=== PATIENT | male | born 1980 | race Hispanic/Latino ===

== ENCOUNTER 2020-03-03 17:39 | Emergency (ER) | payer OTHER, SELFPAY | END 2020-03-03 18:25 | disposition home or self-care (01) | LOC: NAV ERS 17:39 | DX: F41.1 Generalized anxiety disorder (principal); F33.9 Major depressive disorder, recurrent, unspecified; R03.0 Elevated blood-pressure reading, without diagnosis of hypertension; F17.210 Nicotine dependence, cigarettes, uncomplicated | CPT/HCPCS: 99283 ==

== ENCOUNTER 2020-03-16 17:13 | Emergency (ER) | payer OTHER ==
[2020-03-16 18:51] LABS: ALT (SGPT) 252 U/L (8-55); AST (SGOT) 295 U/L (5-34); Acetaminophen Less than 6.0 mcg/mL (10.0-30.0); Albumin 4.4 g/dL (3.5-5.0); Alkaline Phosphatase 84 U/L (40-110); Anion Gap 19 mmol/L (10-20); BUN (Urea Nitrogen) Less than 4 mg/dL (8.9-20.6); Bilirubin, Total 0.8 mg/dL (0.2-1.2); Calc. Creatinine Clearance 0 mL/min (70-130); Carbon Dioxide 24 mmol/L (22-29); Chloride 96 mmol/L (98-107); Estimated GFR-MDRD Greater than 90; Globulin 3.4 g/dL (2.4-3.5); Glucose 99 mg/dL (70-105); Potassium 3.8 mmol/L (3.5-5.1); Protein, Total 7.8 g/dL (6.0-8.3); Salicylate Less than 8.0 mg/dL (15.0-30.0); Sodium 135 mmol/L (136-145)
[2020-03-16 18:59] LABS: Alcohol 452 mg/dL (Less than 10)
[2020-03-16 19:00] LABS: Hemoglobin 15.1 g/dL (14.0-18.0); Mean Corpuscular HGB CONC 31.7 g/dL (32.0-36.0); Mean Corpuscular Hemoglobin 29.1 pg (27.0-31.0); Mean Platelet Volume 7.8 fL (7.4-10.4); Platelet Count 53 thou/uL (130-400); RBC Distribution Width 11.9 % (11.5-14.5); Red Blood Cell (RBC) Count 5.19 mill/uL (4.70-6.10); White Blood Cell (WBC) Count 3.4 thou/uL (4.8-10.8)
[2020-03-16 19:17] LABS: Bilirubin Negative (Negative); Blood, Urine Trace (Negative); Clarity Clear (Clear); Glucose, Urine (Dipstick) Negative (Negative); Ketone, Urine Negative (Negative); Leukocyte Negative (Negative); Nitrite Negative (Negative); Protein, Urine (Dipstick) 30 mg/dL (Neg-Trace); Urobilinogen 0.2 mg/dL (Less than 2); pH, Urine 5.5 (5.0-9.0)
[2020-03-16 19:24] LABS: Specific Gravity, Urine Less/Equal 1.005 (1.005-1.030)
[2020-03-16 19:28] LABS: Amphetamine Not Detected (NotDetected); Barbiturates Screen Not Detected (NotDetected); Benzodiazepine Screen Detected (NotDetected); Cocaine Metabolite Screen Not Detected (NotDetected); Medtox Control Line Valid? VALID (VALID); Methadone Not Detected (NotDetected); Methamphetamine Not Detected (NotDetected); Opiate Screen Not Detected (NotDetected); Oxycodone Screen Not Detected (NotDetected); Phencyclidine (PCP) Not Detected (NotDetected); THC/Cannabinoid Screen Not Detected (NotDetected); Tricyclic Screen Not Detected (NotDetected)
[2020-03-16 19:46] LABS: Bacteria/HPF None Seen HPF (None Seen); RBC/HPF None Seen HPF (0-3); Squamous Epithelial 0-3 HPF (0-3); WBC/HPF None Seen HPF (0-3)
[2020-03-16 20:09] LABS: Eosinophils 2 % (0-10); Lymphocytes 19 % (21-51); MDiff Complete? YES; Monocytes 8 % (0-10); Neutrophil 71 % (42-75); Platelet Morphology Comment Appears Adequate; RBC Morphology Normal
[2020-03-16] MEDS ORDERED: Sodium Chloride 0.9% 1,000 ML ONE (21:43)
[2020-03-17] MEDS ORDERED: Ondansetron PF 4 MG/2 ML Vial ONE (07:09)
[2020-03-17] MEDS ORDERED: Sodium Chloride 0.9% 1,000 ML ONE (07:50)
[2020-03-17] MEDS ORDERED: Diazepam 5 MG TAB ONE (10:37)
[2020-03-17] MEDS ORDERED: Lorazepam 2 MG/ML VIAL ONE (10:37)
== END 2020-03-17 13:10 | disposition home or self-care (01) ==
LOC: NAV ERS 17:13
DX: F41.9 Anxiety disorder, unspecified (principal); F10.129 Alcohol abuse with intoxication, unspecified; R45.851 Suicidal ideations; F32.9 Major depressive disorder, single episode, unspecified; F17.210 Nicotine dependence, cigarettes, uncomplicated
CPT/HCPCS: 36415; 80053; 80306; 80307; 81003; 81015; 84443; 85025; 96361; 96374; 96375; J2060; J2405; J7050

== ENCOUNTER 2020-11-14 17:10 | Emergency (ER) | payer OTHER, SELFPAY | END 2020-11-14 17:29 | LOC: NAV ERS 17:10 | DX: F10.129 Alcohol abuse with intoxication, unspecified (principal); F17.210 Nicotine dependence, cigarettes, uncomplicated | CPT/HCPCS: 99284 ==

== ENCOUNTER 2020-11-16 11:24 | Emergency (ER) | payer SELFPAY ==
[2020-11-16] MEDS ORDERED: Pantoprazole 40 MG VIAL ONE (12:15)
[2020-11-16] MEDS ORDERED: Thiamine HCl 200 MG/2 ML VIAL ONE (12:15)
[2020-11-16] MEDS ORDERED: Sodium Chloride 0.9% 1,000 ML ONE (12:15)
[2020-11-16] MEDS ORDERED: Lorazepam 2 MG/ML VIAL ONE (12:15)
[2020-11-16 12:59] LABS: ALT (SGPT) 109 U/L (8-55); AST (SGOT) 107 U/L (5-34); Albumin 4.2 g/dL (3.5-5.0); Alkaline Phosphatase 85 U/L (40-110); Anion Gap 20 mmol/L (10-20); BUN (Urea Nitrogen) 8 mg/dL (8.9-20.6); Bilirubin, Total 2.1 mg/dL (0.2-1.2); Calc. Creatinine Clearance 0 mL/min (70-130); Calcium 8.9 mg/dL (7.8-10.44); Carbon Dioxide 21 mmol/L (22-29); Chloride 98 mmol/L (98-107); Globulin 2.9 g/dL (2.4-3.5); Glucose 126 mg/dL (70-105); Protein, Total 7.1 g/dL (6.0-8.3); Sodium 136 mmol/L (136-145)
[2020-11-16 13:19] LABS: Potassium 2.9 mmol/L (3.5-5.1)
[2020-11-16 13:23] LABS: Hemoglobin 13.5 g/dL (14.0-18.0); Lymphocytes 6 % (21-51); MDiff Complete? YES; Mean Corpuscular Hemoglobin 29.5 pg (27.0-31.0); Mean Corpuscular Volume 95.2 fL (78.0-98.0); Mean Platelet Volume 11.1 fL (7.4-10.4); Monocytes 16 % (0-10); Neutrophil 78 % (42-75); Platelet Count 30 thou/uL (130-400); Platelet Morphology Comment Appears Decreased; RBC Distribution Width 12.2 % (11.5-14.5); Red Blood Cell (RBC) Count 4.58 mill/uL (4.70-6.10); White Blood Cell (WBC) Count 2.8 thou/uL (4.8-10.8)
[2020-11-16] MEDS ORDERED: Potassium Chloride 20 MEQ/100 ML PREMIX BAG ONE (13:39)
[2020-11-16 15:23] LABS: INR-International Normal Ratio 1.2; Prothrombin Time 15.8 sec (12.0-14.7)
[2020-11-16 16:17] LABS: Bilirubin Small (Negative); Blood, Urine Moderate (Negative); Glucose, Urine (Dipstick) 100 mg/dL (Negative); Ketone, Urine > or equal to 80 mg/dL (Negative); Leukocyte Negative (Negative); Nitrite Negative (Negative); Protein, Urine (Dipstick) > or equal to 300 mg/dL (Neg-Trace); Specific Gravity, Urine 1.025 (1.005-1.030); pH, Urine 6.5 (5.0-9.0)
[2020-11-16 16:37] LABS: Clarity SL HAZY (Clear); Squamous Epithelial 0-3 HPF (0-3); WBC/HPF 0-3 HPF (0-3)
== END 2020-11-16 17:24 | disposition left against medical advice (07) ==
LOC: NAV ERS 11:24
DX: F10.239 Alcohol dependence with withdrawal, unspecified (principal); D69.6 Thrombocytopenia, unspecified; R56.9 Unspecified convulsions; Z87.891 Personal history of nicotine dependence
CPT/HCPCS: 70450; 80053; 81003; 81015; 85025; 85610; 85730; 96365; 96366; 96367; 96375; C9113; J2060; J3411; J3480; J7050

== ENCOUNTER 2020-11-27 22:21 | Emergency (ER) | payer SELFPAY ==
[2020-11-27 23:24] LABS: ALT (SGPT) 131 U/L (8-55); AST (SGOT) 174 U/L (5-34); Acetaminophen Less than 6.0 mcg/mL (10.0-30.0); Alkaline Phosphatase 110 U/L (40-110); Anion Gap 21 mmol/L (10-20); BUN (Urea Nitrogen) Less than 4 mg/dL (8.9-20.6); Bilirubin, Total 1.1 mg/dL (0.2-1.2); Calc. Creatinine Clearance 0 mL/min (70-130); Calcium 8.1 mg/dL (7.8-10.44); Carbon Dioxide 18 mmol/L (22-29); Chloride 95 mmol/L (98-107); Globulin 3.2 g/dL (2.4-3.5); Glucose 109 mg/dL (70-105); Protein, Total 7.2 g/dL (6.0-8.3); Salicylate Less than 8.0 mg/dL (15.0-30.0); Sodium 131 mmol/L (136-145)
[2020-11-27] MEDS ORDERED: Potassium Chloride 20 MEQ TAB ONE (23:32)
[2020-11-27 23:33] LABS: Alcohol 404 mg/dL (Less than 10); Potassium 2.9 mmol/L (3.5-5.1)
[2020-11-27 23:43] LABS: Hemoglobin 13.8 g/dL (14.0-18.0); Mean Corpuscular HGB CONC 31.7 g/dL (32.0-36.0); Mean Corpuscular Volume 94.5 fL (78.0-98.0); Mean Platelet Volume 7.2 fL (7.4-10.4); Platelet Count 55 thou/uL (130-400); RBC Distribution Width 11.8 % (11.5-14.5); Red Blood Cell (RBC) Count 4.61 mill/uL (4.70-6.10); White Blood Cell (WBC) Count 4.8 thou/uL (4.8-10.8)
[2020-11-27 23:46] LABS: Amphetamine Not Detected (NotDetected); Barbiturates Screen Not Detected (NotDetected); Benzodiazepine Screen Not Detected (NotDetected); Cocaine Metabolite Screen Not Detected (NotDetected); Medtox Control Line Valid? VALID (VALID); Methadone Not Detected (NotDetected); Methamphetamine Not Detected (NotDetected); Opiate Screen Not Detected (NotDetected); Oxycodone Screen Not Detected (NotDetected); Phencyclidine (PCP) Not Detected (NotDetected); THC/Cannabinoid Screen Not Detected (NotDetected); Tricyclic Screen Not Detected (NotDetected)
[2020-11-27 23:47] LABS: Bilirubin Negative (Negative); Blood, Urine Trace (Negative); Clarity Clear (Clear); Glucose, Urine (Dipstick) Negative (Negative); Ketone, Urine Negative (Negative); Leukocyte Negative (Negative); Nitrite Negative (Negative); Protein, Urine (Dipstick) Negative (Neg-Trace); Urobilinogen 0.2 mg/dL (Less than 2)
[2020-11-27 23:53] LABS: %Lymphocytes 10.1 % (21.0-51.0); %Neutrophils 71.6 % (42.0-75.0)
[2020-11-27 23:55] LABS: #Neutrophils 3.5 thou/uL (1.40-6.50); %Basophils 1.4 % (0.0-1.0); %Monocytes 16.9 % (0.0-10.0)
[2020-11-27 23:56] LABS: #Basophils 0.1 thou/uL (0.0-0.2); #Lymphocytes 0.5 thou/uL (1.20-3.40); #Monocytes 0.8 thou/uL (0.11-0.59)
[2020-11-27 23:59] LABS: Specific Gravity, Urine 1.004 (1.002-1.036)
[2020-11-28 00:11] LABS: RBC/HPF 0-3 HPF (0-3)
== END 2020-11-28 00:40 | disposition home or self-care (01) ==
LOC: NAV ERS 22:21
DX: F10.129 Alcohol abuse with intoxication, unspecified (principal); E87.6 Hypokalemia; E87.2 Acidosis; D69.6 Thrombocytopenia, unspecified; Z87.891 Personal history of nicotine dependence
CPT/HCPCS: 70450; 71045; 80053; 80306; 80307; 81003; 81015; 84484; 85025; 93005; 94760

== ENCOUNTER 2020-11-28 22:05 | Emergency (ER) | payer SELFPAY ==
[2020-11-28] MEDS ORDERED: Ondansetron PF 4 MG/2 ML Vial ONE (22:25)
[2020-11-28] MEDS ORDERED: Sodium Chloride 0.9% 1,000 ML ONE (22:25)
[2020-11-28] MEDS ORDERED: Lorazepam 2 MG/ML VIAL ONE (22:41)
[2020-11-28] MEDS ORDERED: Thiamine HCl 200 MG/2 ML VIAL ONE (22:45)
[2020-11-28] MEDS ORDERED: Sodium Chloride 0.9% 100 ML ONE (22:45)
[2020-11-28 22:51] LABS: ALT (SGPT) 119 U/L (8-55); AST (SGOT) 167 U/L (5-34); Albumin 4.1 g/dL (3.5-5.0); Alcohol 265 mg/dL (Less than 10); Alkaline Phosphatase 99 U/L (40-110); Anion Gap 20 mmol/L (10-20); BUN (Urea Nitrogen) Less than 4 mg/dL (8.9-20.6); Bilirubin, Total 1.1 mg/dL (0.2-1.2); Calc. Creatinine Clearance 0 mL/min (70-130); Calcium 8.3 mg/dL (7.8-10.44); Carbon Dioxide 19 mmol/L (22-29); Chloride 97 mmol/L (98-107); Globulin 3.2 g/dL (2.4-3.5); Glucose 85 mg/dL (70-105); Lipase 47 U/L (8-78); Potassium 3.3 mmol/L (3.5-5.1); Protein, Total 7.3 g/dL (6.0-8.3); Sodium 133 mmol/L (136-145)
[2020-11-28 23:00] LABS: #Lymphocytes 0.5 thou/uL (1.20-3.40); #Monocytes 0.5 thou/uL (0.11-0.59); #Neutrophils 2.7 thou/uL (1.40-6.50); %Basophils 1.2 % (0.0-1.0); %Eosinophils 0.2 % (0.0-10.0); %Lymphocytes 13.3 % (21.0-51.0); %Monocytes 13.9 % (0.0-10.0); %Neutrophils 71.3 % (42.0-75.0); Hemoglobin 12.4 g/dL (14.0-18.0); Mean Corpuscular HGB CONC 30.8 g/dL (32.0-36.0); Mean Corpuscular Hemoglobin 29.6 pg (27.0-31.0); Mean Corpuscular Volume 95.9 fL (78.0-98.0); Mean Platelet Volume 6.8 fL (7.4-10.4); Platelet Count 46 thou/uL (130-400); RBC Distribution Width 12.2 % (11.5-14.5); Red Blood Cell (RBC) Count 4.21 mill/uL (4.70-6.10); White Blood Cell (WBC) Count 3.8 thou/uL (4.8-10.8)
[2020-11-28 23:06] LABS: Amphetamine Not Detected (NotDetected); Barbiturates Screen Not Detected (NotDetected); Benzodiazepine Screen Not Detected (NotDetected); Cocaine Metabolite Screen Not Detected (NotDetected); Medtox Control Line Valid? VALID (VALID); Methadone Not Detected (NotDetected); Methamphetamine Not Detected (NotDetected); Opiate Screen Not Detected (NotDetected); Oxycodone Screen Not Detected (NotDetected); Phencyclidine (PCP) Not Detected (NotDetected); THC/Cannabinoid Screen Not Detected (NotDetected); Tricyclic Screen Not Detected (NotDetected)
== END 2020-11-29 00:10 | disposition home or self-care (01) ==
LOC: NAV ERS 22:05
DX: F10.129 Alcohol abuse with intoxication, unspecified (principal); R11.2 Nausea with vomiting, unspecified; Z87.891 Personal history of nicotine dependence
CPT/HCPCS: 71045; 80053; 80306; 80307; 83690; 85025; 93005; 96365; 96375; J2060; J2405; J3411; J7050

== ENCOUNTER 2020-12-05 00:34 | Emergency (ER) | payer SELFPAY ==
[2020-12-05] MEDS ORDERED: Ondansetron PF 4 MG/2 ML Vial ONE (01:12)
[2020-12-05 01:28] LABS: ALT (SGPT) 171 U/L (8-55); AST (SGOT) 227 U/L (5-34); Albumin 4.2 g/dL (3.5-5.0); Alkaline Phosphatase 122 U/L (40-110); Anion Gap 19 mmol/L (10-20); BUN (Urea Nitrogen) Less than 4 mg/dL (8.9-20.6); Bilirubin, Total 0.9 mg/dL (0.2-1.2); Calc. Creatinine Clearance 0 mL/min (70-130); Calcium 8.5 mg/dL (7.8-10.44); Carbon Dioxide 23 mmol/L (22-29); Chloride 93 mmol/L (98-107); Globulin 3.5 g/dL (2.4-3.5); Glucose 105 mg/dL (70-105); Potassium 3.5 mmol/L (3.5-5.1); Protein, Total 7.7 g/dL (6.0-8.3); Sodium 131 mmol/L (136-145)
[2020-12-05 01:31] LABS: Band 10 % (5-11); Hemoglobin 13.5 g/dL (14.0-18.0); Lymphocytes 24 % (21-51); MDiff Complete? YES; Mean Corpuscular HGB CONC 30.9 g/dL (32.0-36.0); Mean Corpuscular Hemoglobin 29.7 pg (27.0-31.0); Mean Corpuscular Volume 95.9 fL (78.0-98.0); Mean Platelet Volume 7.8 fL (7.4-10.4); Metamyelocyte 1 % (0-0); Monocytes 5 % (0-10); Neutrophil 60 % (42-75); Platelet Count 44 thou/uL (130-400); Platelet Morphology Comment Appears Decreased; RBC Distribution Width 12.2 % (11.5-14.5); RBC Morphology Normal; Red Blood Cell (RBC) Count 4.55 mill/uL (4.70-6.10); White Blood Cell (WBC) Count 2.5 thou/uL (4.8-10.8)
[2020-12-05 01:35] LABS: Alcohol 423 mg/dL (Less than 10)
== END 2020-12-05 02:30 | disposition home or self-care (01) ==
LOC: NAV ERS 00:34
DX: F10.129 Alcohol abuse with intoxication, unspecified (principal); F41.9 Anxiety disorder, unspecified; E87.1 Hypo-osmolality and hyponatremia; D69.6 Thrombocytopenia, unspecified; Z87.891 Personal history of nicotine dependence
CPT/HCPCS: 80053; 80307; 85025; 96374; J2405

== ENCOUNTER 2020-12-05 12:28 | Emergency (ER) | payer SELFPAY ==
[2020-12-05] MEDS ORDERED: Acetaminophen 500 MG TAB ONE (12:55)
[2020-12-05] MEDS ORDERED: Ondansetron ODT 4 MG TAB ONE (12:55)
== END 2020-12-05 13:01 | disposition home or self-care (01) ==
LOC: NAV ERS 12:28
DX: F10.10 Alcohol abuse, uncomplicated (principal); R11.2 Nausea with vomiting, unspecified; R19.7 Diarrhea, unspecified; K21.9 Gastro-esophageal reflux disease without esophagitis; Z87.891 Personal history of nicotine dependence; Z79.899 Other long term (current) drug therapy
CPT/HCPCS: 99283; Q0162

== ENCOUNTER 2020-12-05 22:49 | Emergency (ER) | payer SELFPAY ==
[2020-12-05] MEDS ORDERED: Ondansetron ODT 4 MG TAB ONE (23:30)
[2020-12-05] MEDS ORDERED: Mag-Al Plus 1200 MG/1200 MG/120 MG/30 ML UDCUP ONE (23:48)
[2020-12-05] MEDS ORDERED: Lidocaine Viscous Sol 2% 15 ml UD Cup ONE (23:48)
== END 2020-12-06 00:25 | disposition home or self-care (01) ==
LOC: NAV ERS 22:49
DX: F10.20 Alcohol dependence, uncomplicated (principal); R10.10 Upper abdominal pain, unspecified; R11.2 Nausea with vomiting, unspecified; R19.7 Diarrhea, unspecified; K21.9 Gastro-esophageal reflux disease without esophagitis; Z87.891 Personal history of nicotine dependence
CPT/HCPCS: 99284; Q0162

== ENCOUNTER 2021-03-17 14:52 | Inpatient (IN) | payer SELFPAY ==
[2021-03-17 15:39] LABS: #Basophils 0.1 thou/uL (0.0-0.2); #Lymphocytes 0.9 thou/uL (1.20-3.40); #Monocytes 1.3 thou/uL (0.11-0.59); %Basophils 0.9 % (0.0-1.0); %Eosinophils 0.3 % (0.0-10.0); %Monocytes 12.2 % (0.0-10.0); %Neutrophils 77.6 % (42.0-75.0); Mean Corpuscular HGB CONC 32.5 g/dL (32.0-36.0); Mean Corpuscular Hemoglobin 30.4 pg (27.0-31.0); Mean Corpuscular Volume 93.5 fL (78.0-98.0); Mean Platelet Volume 8.3 fL (7.4-10.4); Platelet Count 123 thou/uL (130-400); RBC Distribution Width 11.7 % (11.5-14.5); White Blood Cell (WBC) Count 10.3 thou/uL (4.8-10.8)
[2021-03-17 15:54] LABS: ALT (SGPT) 82 U/L (8-55); AST (SGOT) 82 U/L (5-34); Albumin 4.4 g/dL (3.5-5.0); Alcohol Less than 10 mg/dL (Less than 10); Alkaline Phosphatase 96 U/L (40-110); Anion Gap 19 mmol/L (10-20); BUN (Urea Nitrogen) 24 mg/dL (8.9-20.6); Bilirubin, Total 1.2 mg/dL (0.2-1.2); Calc. Creatinine Clearance 0 mL/min (70-130); Calcium 10.1 mg/dL (7.8-10.44); Carbon Dioxide 21 mmol/L (22-29); Chloride 97 mmol/L (98-107); Globulin 3.8 g/dL (2.4-3.5); Glucose 101 mg/dL (70-105); Potassium 3.2 mmol/L (3.5-5.1); Protein, Total 8.2 g/dL (6.0-8.3); Sodium 134 mmol/L (136-145)
[2021-03-17 15:55] LABS: Acetaminophen Less than 6.0 mcg/mL (10.0-30.0); Alcohol Less than 10 mg/dL (Less than 10); Lipase 71 U/L (8-78); Salicylate Less than 8.0 mg/dL (15.0-30.0)
[2021-03-17] MEDS ORDERED: Sodium Chloride 0.9% 1,000 ML ONE (17:03)
[2021-03-17 17:56] LABS: Bilirubin Moderate (Negative); Blood, Urine Trace (Negative); Glucose, Urine (Dipstick) 100 mg/dL (Negative); Ketone, Urine 15 mg/dL (Negative); Leukocyte Negative (Negative); Nitrite Negative (Negative); Protein, Urine (Dipstick) 30 mg/dL (Neg-Trace); Specific Gravity, Urine 1.025 (1.005-1.030)
[2021-03-17 18:08] LABS: Amphetamine Not Detected (NotDetected); Barbiturates Screen Not Detected (NotDetected); Benzodiazepine Screen Not Detected (NotDetected); Cocaine Metabolite Screen Not Detected (NotDetected); Medtox Control Line Valid? VALID (VALID); Methadone Not Detected (NotDetected); Methamphetamine Not Detected (NotDetected); Opiate Screen Not Detected (NotDetected); Oxycodone Screen Not Detected (NotDetected); Phencyclidine (PCP) Not Detected (NotDetected); THC/Cannabinoid Screen Not Detected (NotDetected); Tricyclic Screen Not Detected (NotDetected)
[2021-03-17 18:11] LABS: Clarity SL HAZY (Clear)
[2021-03-17 18:12] LABS: RBC/HPF 0-3 HPF (0-3); Squamous Epithelial 0-3 HPF (0-3)
[2021-03-17] MEDS ORDERED: Thiamine HCl 200 MG/2 ML VIAL ONE ×2 (19:59→21:39)
[2021-03-17] MEDS ORDERED: Thiamine 100 MG TAB ONE (21:38)
[2021-03-17] MEDS ORDERED: Dextrose 5 %-0.45 % NaCl 1,000 ML ONE (21:38)
[2021-03-17] MEDS ORDERED: Multivit, Adult Inj 10 ML VIAL ONE (21:38)
[2021-03-17 23:10] LABS: SARS-CoV-2 NAA Rapid Test Not Detected (NotDetected)
[2021-03-17] MEDS ORDERED: Lorazepam 2 MG/ML VIAL SLOW IVP PRN (23:41)
[2021-03-17] MEDS ORDERED: Ondansetron PF 4 MG/2 ML Vial IVP PRN (23:45)
[2021-03-17] MEDS ORDERED: Ondansetron ODT 4 MG TAB SL PRN (23:45)
[2021-03-17] MEDS ORDERED: Acetaminophen 325 MG TAB PO PRN (23:45)
[2021-03-17 23:52] VITALS: BMI 23.1
[2021-03-18] MEDS ORDERED: Multivit, Adult Inj 10 ML VIAL ONE (04:44)
[2021-03-18] MEDS ORDERED: Dextrose 5% in Water 1,000 ML ONE (04:45)
[2021-03-18] MEDS: Folic Acid 1 MG, Multivitamins, Adult 10 ML in Dextrose 5 %-0.45 % NaCl 1,000 ML IV SCH (05:00)
[2021-03-18] MEDS ORDERED: Thiamine HCl 200 MG/2 ML VIAL ONE ×2 (05:24→05:25)
[2021-03-18 05:48] LABS: #Basophils 0.1 thou/uL (0.0-0.2); #Eosinphils 0.1 thou/uL (0.0-0.7); #Monocytes 0.9 thou/uL (0.11-0.59); #Neutrophils 5.4 thou/uL (1.40-6.50); %Basophils 1.4 % (0.0-1.0); %Eosinophils 0.8 % (0.0-10.0); %Monocytes 11.7 % (0.0-10.0); %Neutrophils 73.1 % (42.0-75.0); Elliptocytes SLIGHT = 2-5 cells (100X) (0-1/hpf); MDiff Complete? YES; Mean Corpuscular HGB CONC 31.8 g/dL (32.0-36.0); Mean Corpuscular Hemoglobin 30.8 pg (27.0-31.0); Mean Corpuscular Volume 96.9 fL (78.0-98.0); Mean Platelet Volume 8.6 fL (7.4-10.4); Platelet Count 100 thou/uL (130-400); Platelet Morphology Comment Appears Decreased; RBC Distribution Width 12.4 % (11.5-14.5); RBC Morphology Normal; Red Blood Cell (RBC) Count 3.88 mill/uL (4.70-6.10); Sickle Cells SLIGHT = 1-5 cells (100X) (None Seen); Spherocytes SLIGHT = 1-5 cells (100X) (None Seen); Target Cells MODERATE= 6-15 cells (100X) (0-1/hpf); White Blood Cell (WBC) Count 7.4 thou/uL (4.8-10.8)
[2021-03-18 05:52] LABS: ALT (SGPT) 57 U/L (8-55); AST (SGOT) 53 U/L (5-34); Albumin 3.5 g/dL (3.5-5.0); Alkaline Phosphatase 70 U/L (40-110); Anion Gap 13 mmol/L (10-20); BUN (Urea Nitrogen) 16 mg/dL (8.9-20.6); Calc. Creatinine Clearance 147 mL/min (70-130); Calcium 8.6 mg/dL (7.8-10.44); Carbon Dioxide 19 mmol/L (22-29); Chloride 103 mmol/L (98-107); Glucose 91 mg/dL (70-105); Potassium 3.1 mmol/L (3.5-5.1); Protein, Total 6.5 g/dL (6.0-8.3); Sodium 132 mmol/L (136-145)
[2021-03-18] MEDS ORDERED: Loperamide HCl 2 MG CAP PO PRN (11:51)
[2021-03-18] MEDS: Potassium Chloride 20 MEQ TAB PO SCH (13:34)
[2021-03-18 14:43] VITALS: BP 110/77; TEMP 97.7
[2021-03-19] MEDS ORDERED: Thiamine 100 MG TAB PO SCH (09:00)
== END 2021-03-18 14:30 | disposition home or self-care (01) | DRG 897 ==
LOC: NAV ERS 14:52 → NAV ACUTE 22:58
PROVIDERS: ADMIT Internal Medicine; ATTEND Internal Medicine
PROC: HZ2ZZZZ Detoxification Services for Substance Abuse Treatment (ICD-10-PCS; principal; 2021-03-17)
DX: F10.139 Alcohol abuse with withdrawal, unspecified (principal); E87.1 Hypo-osmolality and hyponatremia; F10.129 Alcohol abuse with intoxication, unspecified; Y90.0 Blood alcohol level of less than 20 mg/100 ml; D64.9 Anemia, unspecified; E87.6 Hypokalemia; R56.9 Unspecified convulsions; R53.81 Other malaise; K21.9 Gastro-esophageal reflux disease without esophagitis; F32.9 Major depressive disorder, single episode, unspecified; Z20.822 Contact with and (suspected) exposure to COVID-19; F41.9 Anxiety disorder, unspecified; Z87.891 Personal history of nicotine dependence
CPT/HCPCS: 36415; 36416; 51701; 70450; 80053; 80306; 80307; 81003; 81015; 82140; 82533; 82550; 83690; 85025; 93005; 96365; 96375; J3411; J3490; J7042; J7050; J7070; U0002

== ENCOUNTER 2021-03-29 06:12 | Emergency (ER) | payer OTHER, SELFPAY ==
[2021-03-29 06:30] LABS: #Basophils 0.1 thou/uL (0.0-0.2); #Eosinphils 0.1 thou/uL (0.0-0.7); #Lymphocytes 1.6 thou/uL (1.20-3.40); #Monocytes 0.6 thou/uL (0.11-0.59); #Neutrophils 5.3 thou/uL (1.40-6.50); %Basophils 1.2 % (0.0-1.0); %Eosinophils 1.3 % (0.0-10.0); %Lymphocytes 20.6 % (21.0-51.0); %Monocytes 7.4 % (0.0-10.0); %Neutrophils 69.6 % (42.0-75.0); Mean Corpuscular HGB CONC 31.2 g/dL (32.0-36.0); Mean Corpuscular Hemoglobin 30.9 pg (27.0-31.0); Mean Corpuscular Volume 98.9 fL (78.0-98.0); Mean Platelet Volume 7.5 fL (7.4-10.4); Platelet Count 252 thou/uL (130-400); RBC Distribution Width 13.5 % (11.5-14.5); Red Blood Cell (RBC) Count 3.55 mill/uL (4.70-6.10); White Blood Cell (WBC) Count 7.6 thou/uL (4.8-10.8)
[2021-03-29] MEDS ORDERED: Boostrix 0.5 ML (Tdap) VIAL ONE (06:41)
[2021-03-29] MEDS ORDERED: Sodium Chloride 0.9% 1,000 ML ONE ×2 (06:43→09:01)
[2021-03-29 06:46] LABS: ALT (SGPT) 63 U/L (8-55); AST (SGOT) 104 U/L (5-34); Albumin 3.2 g/dL (3.5-5.0); Alkaline Phosphatase 107 U/L (40-110); Anion Gap 14 mmol/L (10-20); BUN (Urea Nitrogen) 6 mg/dL (8.9-20.6); Bilirubin, Total 0.5 mg/dL (0.2-1.2); CK (CPK) 57 U/L (30-200); Calc. Creatinine Clearance 0 mL/min (70-130); Calcium 8.6 mg/dL (7.8-10.44); Carbon Dioxide 25 mmol/L (22-29); Chloride 105 mmol/L (98-107); Globulin 2.8 g/dL (2.4-3.5); Glucose 127 mg/dL (70-105); Lipase 45 U/L (8-78); Potassium 3.1 mmol/L (3.5-5.1); Sodium 141 mmol/L (136-145)
[2021-03-29 07:17] LABS: Bilirubin Negative (Negative); Blood, Urine Trace (Negative); Clarity Clear (Clear); Glucose, Urine (Dipstick) Negative (Negative); Ketone, Urine Negative (Negative); Leukocyte Negative (Negative); Nitrite Negative (Negative); Protein, Urine (Dipstick) Negative (Neg-Trace); Urobilinogen 0.2 mg/dL (Less than 2)
[2021-03-29 07:34] LABS: Bacteria/HPF Rare-Few HPF (None Seen); RBC/HPF 0-3 HPF (0-3); Squamous Epithelial None Seen HPF (0-3); WBC/HPF 0-3 HPF (0-3)
[2021-03-29 07:56] LABS: Amphetamine Not Detected (NotDetected); Barbiturates Screen Not Detected (NotDetected); Benzodiazepine Screen Detected (NotDetected); Cocaine Metabolite Screen Not Detected (NotDetected); Medtox Control Line Valid? VALID (VALID); Methadone Not Detected (NotDetected); Methamphetamine Not Detected (NotDetected); Opiate Screen Not Detected (NotDetected); Oxycodone Screen Not Detected (NotDetected); Phencyclidine (PCP) Not Detected (NotDetected); THC/Cannabinoid Screen Not Detected (NotDetected); Tricyclic Screen Not Detected (NotDetected)
[2021-03-29] MEDS ORDERED: Iopamidol 370 76% 100 ML VIAL ONE (09:00)
== END 2021-03-29 11:00 | disposition home or self-care (01) ==
LOC: NAV ERS 06:12
DX: S01.112A Laceration without foreign body of left eyelid and periocular area, initial encounter (principal); S41.012A Laceration without foreign body of left shoulder, initial encounter; K74.60 Unspecified cirrhosis of liver; K76.6 Portal hypertension; H74.92 Unspecified disorder of left middle ear and mastoid; K21.9 Gastro-esophageal reflux disease without esophagitis; Z87.891 Personal history of nicotine dependence; V40.5XXA Car driver injured in collision with pedestrian or animal in traffic accident, initial encounter
CPT/HCPCS: 70450; 71260; 72125; 74177; 80053; 80306; 80307; 81003; 81015; 82550; 83690; 84484; 85025; 90471; 90715; 93005; J7050; Q9967

== ENCOUNTER 2021-04-29 11:58 | Emergency (ER) | payer OTHER, SELFPAY ==
[2021-04-29] MEDS ORDERED: Thiamine HCl 200 MG/2 ML VIAL ONE (12:25)
[2021-04-29] MEDS ORDERED: Multivit, Adult Inj 10 ML VIAL ONE (12:26)
[2021-04-29] MEDS ORDERED: Dextrose 5 %-0.45 % NaCl 1,000 ML ONE (12:27)
[2021-04-29 13:07] LABS: #Lymphocytes 0.2 thou/uL (1.20-3.40); #Monocytes 0.6 thou/uL (0.11-0.59); #Neutrophils 5.1 thou/uL (1.40-6.50); %Basophils 0.7 % (0.0-1.0); %Lymphocytes 2.9 % (21.0-51.0); %Monocytes 10.3 % (0.0-10.0); %Neutrophils 86.1 % (42.0-75.0); Hemoglobin 13.7 g/dL (14.0-18.0); Mean Corpuscular HGB CONC 31.8 g/dL (32.0-36.0); Mean Corpuscular Hemoglobin 30.2 pg (27.0-31.0); Mean Corpuscular Volume 95.1 fL (78.0-98.0); Mean Platelet Volume 7.6 fL (7.4-10.4); RBC Distribution Width 12.4 % (11.5-14.5); Red Blood Cell (RBC) Count 4.54 mill/uL (4.70-6.10)
[2021-04-29 13:08] LABS: Platelet Count 56 thou/uL (130-400)
[2021-04-29 13:19] LABS: ALT (SGPT) 70 U/L (8-55); AST (SGOT) 162 U/L (5-34); Albumin 3.8 g/dL (3.5-5.0); Alcohol Less than 10 mg/dL (Less than 10); Alkaline Phosphatase 135 U/L (40-110); Anion Gap 28 mmol/L (10-20); BUN (Urea Nitrogen) Less than 4 mg/dL (8.9-20.6); Bilirubin, Total 2.4 mg/dL (0.2-1.2); Calc. Creatinine Clearance 0 mL/min (70-130); Calcium 9.1 mg/dL (7.8-10.44); Carbon Dioxide 14 mmol/L (22-29); Chloride 93 mmol/L (98-107); Globulin 3.4 g/dL (2.4-3.5); Glucose 96 mg/dL (70-105); Protein, Total 7.2 g/dL (6.0-8.3); Sodium 132 mmol/L (136-145)
[2021-04-29] MEDS ORDERED: chlordiazePOXIDE HCl 25 MG CAP PO SCH (13:30)
[2021-04-29] MEDS ORDERED: Potassium Chloride 20 MEQ TAB ONE (13:35)
[2021-04-29 13:54] LABS: Bilirubin Negative (Negative); Blood, Urine Trace (Negative); Clarity Clear (Clear); Glucose, Urine (Dipstick) 100 mg/dL (Negative); Ketone, Urine Negative (Negative); Leukocyte Negative (Negative); Nitrite Negative (Negative); Protein, Urine (Dipstick) 30 mg/dL (Neg-Trace); Specific Gravity, Urine 1.025 (1.005-1.030); Urobilinogen 0.2 mg/dL (Less than 2)
[2021-04-29 14:03] LABS: RBC/HPF 0-3 HPF (0-3); WBC/HPF 0-3 HPF (0-3)
[2021-04-29 14:04] LABS: Amphetamine Not Detected (NotDetected); Barbiturates Screen Not Detected (NotDetected); Benzodiazepine Screen Not Detected (NotDetected); Cocaine Metabolite Screen Not Detected (NotDetected); Medtox Control Line Valid? VALID (VALID); Methadone Not Detected (NotDetected); Methamphetamine Not Detected (NotDetected); Opiate Screen Not Detected (NotDetected); Oxycodone Screen Not Detected (NotDetected); Phencyclidine (PCP) Not Detected (NotDetected); THC/Cannabinoid Screen Not Detected (NotDetected); Tricyclic Screen Not Detected (NotDetected)
[2021-04-29] MEDS ORDERED: Ondansetron PF 4 MG/2 ML Vial ONE (15:52)
[2021-04-29] MEDS ORDERED: Pantoprazole 40 MG VIAL ONE (15:52)
== END 2021-04-29 16:46 | disposition home or self-care (01) ==
LOC: NAV ERS 11:58
DX: S00.03XA Contusion of scalp, initial encounter (principal); F10.239 Alcohol dependence with withdrawal, unspecified; K21.9 Gastro-esophageal reflux disease without esophagitis; Z87.891 Personal history of nicotine dependence; Y90.0 Blood alcohol level of less than 20 mg/100 ml; W01.198A Fall on same level from slipping, tripping and stumbling with subsequent striking against other object, initial encounter; Y92.481 Parking lot as the place of occurrence of the external cause
CPT/HCPCS: 70450; 71045; 72125; 80053; 80306; 80307; 81003; 81015; 85025; 96365; 96366; 96375; C9113; J2405; J3411; J7042

== ENCOUNTER 2021-05-28 15:07 | Emergency (ER) | payer SELFPAY ==
[2021-05-28] MEDS ORDERED: Sodium Chloride 0.9% 1,000 ML ONE (15:18)
[2021-05-28] MEDS ORDERED: Diazepam 5 MG TAB ONE (15:39)
== END 2021-05-28 15:48 ==
LOC: NAV ERS 15:07
DX: F41.9 Anxiety disorder, unspecified (principal); F13.20 Sedative, hypnotic or anxiolytic dependence, uncomplicated; R11.2 Nausea with vomiting, unspecified; K21.9 Gastro-esophageal reflux disease without esophagitis; F10.20 Alcohol dependence, uncomplicated; Z87.891 Personal history of nicotine dependence
CPT/HCPCS: 99284; J7050

== ENCOUNTER 2021-09-05 14:04 | Outpatient (CLI) | payer SELFPAY | END 2021-09-05 14:05 | disposition home or self-care (01) | LOC: NAV RAD 14:04 | PROVIDERS: ATTEND Family Medicine | DX: J06.9 Acute upper respiratory infection, unspecified (principal) | CPT/HCPCS: 71046 ==

== ENCOUNTER 2021-11-02 17:55 | Emergency (ER) | payer SELFPAY ==
[2021-11-02] MEDS ORDERED: Sodium Chloride 0.9% 1,000 ML ONE (19:05)
[2021-11-02 19:35] LABS: #Basophils 0.1 thou/uL (0.0-0.2); #Eosinphils 0.2 thou/uL (0.0-0.7); #Lymphocytes 1.6 thou/uL (1.20-3.40); #Monocytes 0.7 thou/uL (0.11-0.59); %Eosinophils 2.4 % (0.0-10.0); %Lymphocytes 24.5 % (21.0-51.0); Hemoglobin 13.9 g/dL (14.0-18.0); Mean Corpuscular HGB CONC 31.8 g/dL (32.0-36.0); Mean Corpuscular Hemoglobin 29.5 pg (27.0-31.0); Mean Corpuscular Volume 92.7 fL (78.0-98.0); Platelet Count 176 thou/uL (130-400); RBC Distribution Width 12.1 % (11.5-14.5); Red Blood Cell (RBC) Count 4.72 mill/uL (4.70-6.10); White Blood Cell (WBC) Count 6.5 thou/uL (4.8-10.8)
[2021-11-02 20:05] LABS: ALT (SGPT) 23 U/L (8-55); AST (SGOT) 24 U/L (5-34); Albumin 4.1 g/dL (3.5-5.0); Alcohol 84 mg/dL (Less than 10); Alkaline Phosphatase 82 U/L (40-110); Anion Gap 16 mmol/L (10-20); BUN (Urea Nitrogen) 4 mg/dL (8.9-20.6); Bilirubin, Total 0.8 mg/dL (0.2-1.2); Calc. Creatinine Clearance 0 mL/min (70-130); Calcium 9.2 mg/dL (7.8-10.44); Carbon Dioxide 21 mmol/L (22-29); Chloride 100 mmol/L (98-107); Globulin 2.9 g/dL (2.4-3.5); Glucose 90 mg/dL (70-105); Potassium 3.8 mmol/L (3.5-5.1); Sodium 133 mmol/L (136-145)
== END 2021-11-02 21:33 | disposition home or self-care (01) ==
LOC: NAV ERS 17:55
DX: F41.9 Anxiety disorder, unspecified (principal); R07.2 Precordial pain; K21.9 Gastro-esophageal reflux disease without esophagitis; Z79.899 Other long term (current) drug therapy; Z87.891 Personal history of nicotine dependence
CPT/HCPCS: 71045; 80053; 80307; 84484; 85025; 93005; J7050

== ENCOUNTER 2021-11-20 16:28 | Emergency (ER) | payer SELFPAY | END 2021-11-20 17:54 | disposition home or self-care (01) | LOC: NAV ERS 16:28 | DX: F10.10 Alcohol abuse, uncomplicated (principal); F41.9 Anxiety disorder, unspecified; K21.9 Gastro-esophageal reflux disease without esophagitis; Z87.891 Personal history of nicotine dependence; Z79.899 Other long term (current) drug therapy | CPT/HCPCS: 99283 ==

== ENCOUNTER 2021-11-22 16:05 | Emergency (ER) | payer SELFPAY ==
[2021-11-22] MEDS ORDERED: diphenhydrAMINE 50 MG/ML VIAL ONE (16:49)
[2021-11-22 17:48] LABS: Carbon Dioxide 23 mmol/L (22-29); Chloride 93 mmol/L (98-107); Potassium 4.2 mmol/L (3.5-5.1); Sodium 131 mmol/L (136-145)
[2021-11-22 17:49] LABS: ALT (SGPT) 18 U/L (8-55); AST (SGOT) 21 U/L (5-34); Albumin 4.6 g/dL (3.5-5.0); Alcohol Less than 10 mg/dL (Less than 10); Alkaline Phosphatase 78 U/L (40-110); Anion Gap 19 mmol/L (10-20); BUN (Urea Nitrogen) 9 mg/dL (8.9-20.6); Bilirubin, Total 0.9 mg/dL (0.2-1.2); Calc. Creatinine Clearance 0 mL/min (70-130); Calcium 10.2 mg/dL (7.8-10.44); Globulin 3.2 g/dL (2.4-3.5); Glucose 183 mg/dL (70-105); Protein, Total 7.8 g/dL (6.0-8.3)
[2021-11-22 18:26] LABS: White Blood Cell (WBC) Count 8.6 thou/uL (4.8-10.8)
[2021-11-22 18:27] LABS: %Lymphocytes 13.3 % (21.0-51.0); %Neutrophils 77.3 % (42.0-75.0); Mean Corpuscular HGB CONC 31.7 g/dL (32.0-36.0); Mean Corpuscular Hemoglobin 28.9 pg (27.0-31.0); Mean Corpuscular Volume 91.3 fL (78.0-98.0); Mean Platelet Volume 9.8 fL (7.4-10.4); Platelet Count 247 thou/uL (130-400); Red Blood Cell (RBC) Count 5.19 mill/uL (4.70-6.10)
[2021-11-22 18:28] LABS: #Basophils 0.1 thou/uL (0.0-0.2); #Eosinphils 0.1 thou/uL (0.0-0.7); #Lymphocytes 1.2 thou/uL (1.20-3.40); #Monocytes 0.7 thou/uL (0.11-0.59); #Neutrophils 6.7 thou/uL (1.40-6.50); %Basophils 0.7 % (0.0-1.0); %Eosinophils 0.7 % (0.0-10.0)
== END 2021-11-22 18:44 | disposition home or self-care (01) ==
LOC: NAV ERS 16:05
DX: F41.1 Generalized anxiety disorder (principal); K21.9 Gastro-esophageal reflux disease without esophagitis; D69.6 Thrombocytopenia, unspecified; F17.210 Nicotine dependence, cigarettes, uncomplicated; Z79.899 Other long term (current) drug therapy
CPT/HCPCS: 36415; 80053; 80307; 85025; 93005; 96372; J1200

== ENCOUNTER 2022-09-17 15:41 | Emergency (ER) | payer BC, SELFPAY ==
[2022-09-17] MEDS ORDERED: Aspirin Chewable 81 MG TAB ONE (16:08)
[2022-09-17] MEDS ORDERED: Sodium Chloride 0.9% 1,000 ML ONE (16:08)
[2022-09-17] MEDS ORDERED: Mag-Al Plus 1200 MG/1200 MG/120 MG/30 ML UDCUP ONE (16:08)
[2022-09-17 16:44] LABS: #Basophils 0.1 thou/uL (0.0-0.2); #Eosinphils 0.4 thou/uL (0.0-0.7); #Lymphocytes 2.5 thou/uL (1.20-3.40); #Monocytes 1.1 thou/uL (0.11-0.59); #Neutrophils 7.1 thou/uL (1.40-6.50); %Basophils 0.9 % (0.0-1.0); %Eosinophils 3.5 % (0.0-10.0); %Monocytes 9.9 % (0.0-10.0); %Neutrophils 63.7 % (42.0-75.0); Mean Corpuscular HGB CONC 31.9 g/dL (32.0-36.0); Mean Corpuscular Volume 87.8 fl (78.0-98.0); Mean Platelet Volume 10.6 fL (7.4-10.4); Platelet Count 231 10x3/uL (130-400); RBC Distribution Width 12.9 % (11.5-14.5); Red Blood Cell (RBC) Count 5.73 mill/uL (4.70-6.10); White Blood Cell (WBC) Count 11.2 10x3/uL (4.8-10.8)
[2022-09-17 16:58] LABS: ALT (SGPT) 29 U/L (8-55); AST (SGOT) 20 U/L (5-34); Albumin 4.6 g/dL (3.5-5.0); Alkaline Phosphatase 108 U/L (40-110); Anion Gap 16 mmol/L (10-20); BUN (Urea Nitrogen) 25 mg/dL (8.9-20.6); Bilirubin, Total 0.4 mg/dL (0.2-1.2); Calc. Creatinine Clearance 0 mL/min (70-130); Calcium 9.6 mg/dL (7.8-10.44); Carbon Dioxide 21 mmol/L (22-29); Chloride 106 mmol/L (98-107); Estimated GFR 113; Globulin 3.1 g/dL (2.4-3.5); Glucose 108 mg/dL (70-105); Potassium 4.1 mmol/L (3.5-5.1); Protein, Total 7.7 g/dL (6.0-8.3); Sodium 139 mmol/L (136-145)
== END 2022-09-17 18:20 | disposition home or self-care (01) ==
LOC: NAV ERS 15:41
DX: R07.89 Other chest pain (principal); K21.9 Gastro-esophageal reflux disease without esophagitis; F17.210 Nicotine dependence, cigarettes, uncomplicated
CPT/HCPCS: 71046; 80053; 84443; 84484; 85025; 93005; 96360; J7050

== ENCOUNTER 2022-09-19 18:17 | Emergency (ER) | payer SELFPAY ==
[~2022-09-19 18:17] MED LIST: Iopamidol 370 76% 100 ML VIAL ONE
[2022-09-19] MEDS ORDERED: Aspirin Chewable 81 MG TAB ONE (18:41)
[2022-09-19 18:45] LABS: #Basophils 0.1 thou/uL (0.0-0.2); #Eosinphils 0.3 thou/uL (0.0-0.7); #Lymphocytes 2.1 thou/uL (1.20-3.40); #Monocytes 0.8 thou/uL (0.11-0.59); #Neutrophils 5.6 thou/uL (1.40-6.50); %Basophils 1.2 % (0.0-1.0); %Lymphocytes 23.4 % (21.0-51.0); %Monocytes 8.6 % (0.0-10.0); %Neutrophils 63.9 % (42.0-75.0); Hemoglobin 15.5 g/dL (14.0-18.0); Mean Corpuscular HGB CONC 32.4 g/dL (32.0-36.0); Mean Corpuscular Hemoglobin 28.3 pg (27.0-31.0); Mean Corpuscular Volume 87.2 fl (78.0-98.0); Mean Platelet Volume 10.3 fL (7.4-10.4); Platelet Count 233 10x3/uL (130-400); RBC Distribution Width 12.4 % (11.5-14.5); Red Blood Cell (RBC) Count 5.49 mill/uL (4.70-6.10); White Blood Cell (WBC) Count 8.8 10x3/uL (4.8-10.8)
[2022-09-19 19:20] LABS: ALT (SGPT) 35 U/L (8-55); AST (SGOT) 23 U/L (5-34); Albumin 4.3 g/dL (3.5-5.0); Alkaline Phosphatase 105 U/L (40-110); Anion Gap 15 mmol/L (10-20); BUN (Urea Nitrogen) 21 mg/dL (8.9-20.6); Bilirubin, Total 0.5 mg/dL (0.2-1.2); CK (CPK) 94 U/L (30-200); Calc. Creatinine Clearance 0 mL/min (70-130); Calcium 9.2 mg/dL (7.8-10.44); Carbon Dioxide 21 mmol/L (22-29); Chloride 104 mmol/L (98-107); Estimated GFR 113; Glucose 89 mg/dL (70-105); Lipase 38 U/L (8-78); Protein, Total 7.3 g/dL (6.0-8.3); Sodium 136 mmol/L (136-145)
[2022-09-19 22:08] LABS: Troponin I Less than 0.010 ng/mL (< 0.028)
== END 2022-09-19 22:30 | disposition home or self-care (01) ==
LOC: NAV ERS 18:17
DX: R07.9 Chest pain, unspecified (principal); K21.9 Gastro-esophageal reflux disease without esophagitis; F17.210 Nicotine dependence, cigarettes, uncomplicated; Z79.899 Other long term (current) drug therapy
CPT/HCPCS: 71045; 71275; 80053; 82550; 83690; 84484; 85025; 85379; 93005; 94760; Q9967

== ENCOUNTER 2022-09-20 18:17 | Emergency (ER) | payer SELFPAY ==
[2022-09-20] MEDS ORDERED: Sucralfate 1 GM TAB ONE (18:57)
[2022-09-20] MEDS ORDERED: Ketorolac Tromethamine 30 MG/ML VIAL ONE (18:57)
[2022-09-20 19:04] LABS: #Basophils 0.1 thou/uL (0.0-0.2); #Eosinphils 0.2 thou/uL (0.0-0.7); #Lymphocytes 1.5 thou/uL (1.20-3.40); #Monocytes 0.8 thou/uL (0.11-0.59); #Neutrophils 6.8 thou/uL (1.40-6.50); %Basophils 0.9 % (0.0-1.0); %Eosinophils 1.9 % (0.0-10.0); %Lymphocytes 15.6 % (21.0-51.0); %Monocytes 8.9 % (0.0-10.0); %Neutrophils 72.7 % (42.0-75.0); Hemoglobin 15.1 g/dL (14.0-18.0); Mean Corpuscular HGB CONC 32.7 g/dL (32.0-36.0); Mean Corpuscular Hemoglobin 28.2 pg (27.0-31.0); Mean Corpuscular Volume 86.1 fl (78.0-98.0); Mean Platelet Volume 10.6 fL (7.4-10.4); Platelet Count 221 10x3/uL (130-400); RBC Distribution Width 12.1 % (11.5-14.5); Red Blood Cell (RBC) Count 5.34 mill/uL (4.70-6.10); White Blood Cell (WBC) Count 9.4 10x3/uL (4.8-10.8)
[2022-09-20 19:19] LABS: ALT (SGPT) 33 U/L (8-55); AST (SGOT) 21 U/L (5-34); Albumin 4.5 g/dL (3.5-5.0); Alkaline Phosphatase 106 U/L (40-110); Anion Gap 16 mmol/L (10-20); BUN (Urea Nitrogen) 13 mg/dL (8.9-20.6); Bilirubin, Total 0.6 mg/dL (0.2-1.2); Calc. Creatinine Clearance 0 mL/min (70-130); Calcium 9.4 mg/dL (7.8-10.44); Carbon Dioxide 22 mmol/L (22-29); Chloride 100 mmol/L (98-107); Estimated GFR 114; Globulin 2.9 g/dL (2.4-3.5); Glucose 99 mg/dL (70-105); Potassium 3.8 mmol/L (3.5-5.1); Protein, Total 7.4 g/dL (6.0-8.3); Sodium 134 mmol/L (136-145)
== END 2022-09-20 20:18 | disposition home or self-care (01) ==
LOC: NAV ERS 18:17
DX: R07.9 Chest pain, unspecified (principal); B35.1 Tinea unguium; K21.9 Gastro-esophageal reflux disease without esophagitis; F17.210 Nicotine dependence, cigarettes, uncomplicated; Z79.899 Other long term (current) drug therapy
CPT/HCPCS: 36415; 71045; 80053; 84484; 85025; 93005; 96374; J1885

== ENCOUNTER 2022-09-25 21:23 | Emergency (ER) | payer BC, SELFPAY | END 2022-09-25 22:58 | disposition home or self-care (01) | LOC: NAV ERS 21:23 | DX: R20.2 Paresthesia of skin (principal); F17.210 Nicotine dependence, cigarettes, uncomplicated; K21.9 Gastro-esophageal reflux disease without esophagitis; Z79.899 Other long term (current) drug therapy | CPT/HCPCS: 99283 ==

== ENCOUNTER 2022-09-26 14:13 | Emergency (ER) | payer SELFPAY, BC ==
[2022-09-26] MEDS ORDERED: Methocarbamol 500 MG TAB PO SCH (15:00)
== END 2022-09-26 15:54 | disposition home or self-care (01) ==
LOC: NAV ERS 14:13
DX: M54.12 Radiculopathy, cervical region (principal); R07.89 Other chest pain; K21.9 Gastro-esophageal reflux disease without esophagitis; I10 Essential (primary) hypertension; F17.210 Nicotine dependence, cigarettes, uncomplicated; Z79.899 Other long term (current) drug therapy
CPT/HCPCS: 93005

== ENCOUNTER 2022-09-28 18:16 | Emergency (ER) | payer SELFPAY ==
[2022-09-28] MEDS ORDERED: Acetaminophen 500 MG TAB ONE (19:03)
== END 2022-09-28 19:10 | disposition home or self-care (01) ==
LOC: NAV ERS 18:16
DX: R20.2 Paresthesia of skin (principal); M79.602 Pain in left arm; I10 Essential (primary) hypertension; F17.210 Nicotine dependence, cigarettes, uncomplicated; Z79.899 Other long term (current) drug therapy
CPT/HCPCS: 99283

== ENCOUNTER 2022-10-03 15:50 | Outpatient (CLI) | payer BC | END 2022-10-03 15:51 | disposition home or self-care (01) | LOC: NAV PT 15:50 → NAV RAD 15:51 | PROVIDERS: ATTEND Family Medicine | DX: M47.22 Other spondylosis with radiculopathy, cervical region (principal); M46.02 Spinal enthesopathy, cervical region | CPT/HCPCS: 72040 ==

== ENCOUNTER 2023-12-06 09:54 | Emergency (ER) | payer SELFPAY ==
[2023-12-06] MEDS ORDERED: Boostrix 0.5 ML (Tdap) VIAL (>/=7 yrs of age) ONE (10:42)
[2023-12-06] MEDS ORDERED: Bacitracin 1 PK ONE (10:49)
== END 2023-12-06 11:56 ==
LOC: EEVIPCON 09:54 → NAV ERS 09:54
DX: S02.32XA Fracture of orbital floor, left side, initial encounter for closed fracture (principal); S01.112A Laceration without foreign body of left eyelid and periocular area, initial encounter; I10 Essential (primary) hypertension; F17.210 Nicotine dependence, cigarettes, uncomplicated; W06.XXXA Fall from bed, initial encounter; Z79.899 Other long term (current) drug therapy; Z23 Encounter for immunization
CPT/HCPCS: 12011; 70486; 90471; 90715

== ENCOUNTER 2024-07-07 17:28 | Emergency (ER) | payer BC, OTHER | END 2024-07-07 20:20 | disposition home or self-care (01) | LOC: NAV ERS 17:28 | DX: S00.93XA Contusion of unspecified part of head, initial encounter (principal); H53.8 Other visual disturbances; R51.9 Headache, unspecified; I10 Essential (primary) hypertension; K21.9 Gastro-esophageal reflux disease without esophagitis; F17.210 Nicotine dependence, cigarettes, uncomplicated; W01.198A Fall on same level from slipping, tripping and stumbling with subsequent striking against other object, initial encounter; Z79.899 Other long term (current) drug therapy | CPT/HCPCS: 70450 ==